=== PATIENT | male | born 1975 | race Caucasian/White ===

== ENCOUNTER 2024-04-18 07:00 | Outpatient (NON) | payer OTHER, SELFPAY | END 2024-04-18 07:01 | disposition home or self-care (01) | PROVIDERS: PCP Physician Assistant; Visit Provider Internal Medicine Gastroenterology | DX: Z12.11 Encounter for screening for malignant neoplasm of colon (principal) | CPT/HCPCS: 88305 ==

== ENCOUNTER 2024-04-18 10:37 | Day surgery (SDC) | payer OTHER, SELFPAY ==
[2024-04-06 10:48] VITALS: BMI 25.2
[2024-04-10 10:41] VITALS: BMI 25.2
--- NOTE | 2024-04-17 15:34 | WPDANESEPPF ---
Anes - Initial Pre Proc Eval Procedure: Operation Date: 04/18/24 13:30 Proposed Procedures p Screening Colonoscopy - Turner Ricci MD Date/Time: 04/17/24 15:34 Surgeon: Turner Ricci MD Pre Op Diagnosis: Neoplasm Screening Patient Data Age: 49 Gender: M Height: 1.7 m Weight: 73 kg Allergies Allergy/AdvReac Type Severity Reaction Status Date / Time No Known Allergies Allergy Verified 04/18/24 12:27 Home Medications Medication Instructions Recorded Confirmed Type No Home Medications 04/10/24 04/18/24 History Patient hx anesthesia problems: none Family hx anesthesia problems: none Results Review: All pre-operative results and documents have been reviewed as part of the pre-operative evaluation. [facility] Social History Social History Smoking status: Never smoker Alcohol intake: never Substance use: never Substance use type: does not use Living arrangements: with family Spiritual care concerns: No Anes - Eval Final PreProcedure Day of Procedure 04/17/24 15:34 Patient weight: normal Heart: regular rate and rhythm Lungs: clear to auscultation and normal air movement Airway: Mallampati scale class II Neurological: alert and oriented Last oral intake: >/= 8 hours ASA classification: I Emergent: no Anesthetic plan: proceed Anesthesia type and monitoring: general GIVS and standard monitoring Results Review: All pre-operative results and documents have been reviewed as part of the pre-operative evaluation. Informed Consent: The patient's anesthetic plan and its attendant risks and benefits were discussed with the patient/family/POA. Questions were solicited and answers provided to the satisfaction of the patient/family/POA.
--- NOTE | 2024-04-17 21:16 | PM.HPGS ---
History of Present Illness History of Present Illness Consent: Risks, benefits, and alternatives have been discussed and questions answered. Patient agrees to proceed with procedure. Chief complaint: Neoplasm Screening Narrative: Jacinto Davila is a 49 year old male who is referred for colon cancer screening. Review of Systems Review of Systems: All systems reviewed & are unremarkable except as noted in HPI and below PMFSH Social History Social History Smoking status: Never smoker Alcohol intake: never Substance use: never Substance use type: does not use Living arrangements: with family Spiritual care concerns: No Meds Home Medications and Allergies Home Medications Medication Instructions Recorded Confirmed Type No Home Medications 04/10/24 04/18/24 History Allergies Allergy/AdvReac Type Severity Reaction Status Date / Time No Known Allergies Allergy Verified 04/18/24 12:27 Exam Const: General: alert Orientation/consciousness: patient oriented x3 Resp: Auscultation: clear to auscultation bilaterally Cardio: Rhythm: regular rhythm GI: GI Palp: Yes Soft to palpation and No Tenderness to palpation present (GI) Neuro: General: patient oriented x3 Assessment and Plan Assessment and plan (1) Colon cancer screening: Code(s): Z12.11 - Encounter for screening for malignant neoplasm of colon Status: Acute Assessment and Plan: Colonoscopy with possible biopsy or polypectomy or cautery or injection of substances.
[2024-04-18 12:28] VITALS: BP 124/95; PULSE 89; RESP 16; TEMP 36.8; O2SAT 100; BMI 24.0
[2024-04-18] MEDS: LACTATED RINGERS 1,000 ML 150 ML IV CONT (12:40)
[2024-04-18 13:45] VITALS: BP 108/75; PULSE 73; RESP 16; O2SAT 99
--- NOTE | 2024-04-18 13:48 | WPDANESPN ---
Anes - Prog Note Post-Op Date/Time: 04/18/24 13:48 Cardiovascular status: normal Respiratory status: normal Airway patency: baseline Mental status: baseline Post-Op hydration status: normal Vital Signs: Last Vital Signs Temp 36.8 C 04/18/24 12:28 Pulse 89 04/18/24 12:28 Resp 16 04/18/24 12:28 BP 124/95 H 04/18/24 12:28 Pulse Ox 100 04/18/24 12:28 O2 Del Method Room Air 04/18/24 12:28 Pain Score (VAS): 0 I/O: Intake & Output 04/17/24 04/18/24 04/18/24 23:59 07:59 15:59 Intake Total 600 Balance 600 Post-procedural complaints: none Patient Feedback: Patient satisfied with anesthetic care. Other Findings: Patient vital signs back to baseline. Patient denies nausea and vomiting. Patient's pain under control. Patient OK for discharge.
[2024-04-18 13:55] VITALS: BP 118/96; PULSE 79; RESP 16; O2SAT 98
[2024-04-18 14:05] VITALS: BP 128/99; PULSE 68; RESP 18; O2SAT 99
== END 2024-04-18 14:12 | disposition home or self-care (01) ==
PROVIDERS: PCP Physician Assistant; Visit Provider Internal Medicine Gastroenterology
PROC: 0DJD8ZZ Inspection of Lower Intestinal Tract, Via Natural or Artificial Opening Endoscopic (ICD-10-PCS; CPT 45378; principal; 2024-04-18 13:30)
DX: Z12.11 Encounter for screening for malignant neoplasm of colon (principal); D12.4 Benign neoplasm of descending colon
CPT/HCPCS: 45385